=== PATIENT | male | born 1965 | race Caucasian/White ===

== ENCOUNTER → 2017-02-11 | Outpatient (CLI) | payer OTHER ==
[~2017-02-11] VITALS: Ht 185.4 cm; Wt 95.3 kg
[~2017-02-11] MED LIST: ADVIL PM CAPLE1 EACH PO; AMITRIPTYLINE H10 M3 PO; IBUPROFEN 400400 M2 PO; TYLENOL EXTRA500 MG PO
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
[2017-02-11 11:07] VITALS: BP 143/97
== END ==
LOC: PAIN 07:48
DX: G58.0 Intercostal neuropathy (principal); R07.82 Intercostal pain; M79.1 Myalgia; Z87.828 Personal history of other (healed) physical injury and trauma; Z98.890 Other specified postprocedural states; Z88.2 Allergy status to sulfonamides; Z88.0 Allergy status to penicillin